=== PATIENT | female | born 1985 | race Caucasian/White ===

== ENCOUNTER 2020-06-23 08:31 | Day surgery (SDC) | payer OTHER ==
[~2020-06-23] VITALS: Ht 160 cm; Wt 90.7 kg
--- NOTE | ~2020-06-23 | OR ---
[facility] [address] [place], [place] [address] Draft DATE OF OPERATION: 06/23/2020 SURGEON: Palmer Sawant DO VAULT SERVICE MECHANIC: Dr. Trammell. PREOPERATIVE DIAGNOSIS: Right ovarian torsion. POSTOPERATIVE DIAGNOSES: 1. Right ovarian and tubal torsion. 2. History of endometriosis, right ovarian cyst. OPERATIVE PROCEDURE: Laparoscopic right ovarian D torsion right salpingectomy. FINDINGS: Surgically absent uterus, left tube and ovary. Right tube and ovary torsed around the infundibulopelvic ligament for 360 degrees. Right distal tube edematous swollen measuring 1 cm diameter by 7 cm in length, right ovary with 2 cm simple versus chocolate cyst, otherwise normal-appearing ovary riggins/white in color without evidence of necrosis. INDICATION: The patient is a 34-year-old female, who presented to the [place] [facility] Emergency room after acute onset right lower quadrant abdominal pain of 4:00 a.m. She reported vomiting 3 times at home prior to presentation, has had no appetite today. Tried drinking water at 6:00 a.m., but otherwise has had nothing to eat since 6:00 p.m. last night. SURGICAL HISTORY: Significant for bilateral tubal ligation, prior laparoscopic hysterectomy and left oophorectomy performed for endometriosis. CT scan was initially performed in the ER, which was significant for normal-appearing appendix, enlarged right ovary concerning for possible torsion or mass. Followup ultrasound was performed confirming enlarged right ovary with absent blood flow. Risks, benefits, and alternatives to laparoscopic right ovarian detorsion with possible right ovarian cystectomy, possible right ovariopexy, possible right oophorectomy were discussed at length with the patient and her . Risks of surgical menopause, ovarian , future torsion, bleeding, infection, damage to surrounding structures including but not limited to bowel, bladder, ureter, major PATIENT NAME: FIDE NAIK OPERATIVE REPORT DATE OF : 81 REPORT #: [id number] PHYSICIAN: PALMER SAWANT DO PCP: JULIAN GOODMAN REPORT IS CONFIDENTIAL AND NOT TO BE RELEASED WITHOUT AUTHORIZATION [facility] [address] [place], [place] [address] Draft vessels were discussed at length. The patient elected to proceed, consents were signed, and she was taken to the operating room. DESCRIPTION OF PROCEDURE: The patient was taken to the operating room where she was placed under general anesthesia. She was positioned in dorsal lithotomy and prepped and draped in the normal sterile fashion. 3 cm horizontal skin incision was made through her prior infraumbilical horizontal scar. Using Nita technique, the subcutaneous layer was dissected bluntly and sharply with Metzenbaum scissors. The fascia was grasped, elevated, and entered with Metzenbaum scissors. No adhesions were palpated. Inferior and superior margins of the incision were each marked with a stay suture of 0 Vicryl. Nita trocar was placed in the abdomen and correct placement was confirmed with the laparoscope. Pneumoperitoneum was achieved with CO2 gas and the patient was placed in Trendelenburg to facilitate visualization of the pelvis. A 5 mm incision was made lateral and inferior to the umbilical incision through her prior scar. A 5 mm trocar was placed under direct visualization. Blunt laparoscopic grasper was then used to help retract the bowel and pelvis was surveyed with findings as noted above. Additional 5 mm trocar was placed in a similar fashion on the right side lateral and inferior to the umbilical incision through her prior scar under direct visualization. The tube and ovary were gently and easily de-torsed providing excellent visualization of the edematous distal right fallopian tube. Tube was then grasped and elevated using ligature device. Right salpingectomy was performed taking care to remove the entire fimbria. The tube was removed from the abdomen through the trocar under direct visualization and noted to be intact upon its removal. Once removed, the ovary was fully inspected, noted to have good vascular flow and perfusion to be of normal color and normal size. Risks of ovariopexy to the abdominal wall were considered and decision was made to leave this normal-appearing ovary with small cyst along the pelvic sidewall without fixation. Instrumentation was removed. Pneumoperitoneum was evacuated and the infraumbilical incision was closed in a running fashion at the fascia with 0 Vicryl. Skin closures were performed with 4-0 Monocryl. Robles catheter was removed. Lap, sponge, and instrument counts were correct. The patient was taken to recovery in stable and satisfactory condition. DO TAMMY ThomasZ/MODL /[id number] PATIENT NAME: FIDE NAIK OPERATIVE REPORT DATE OF : [birth year] REPORT #: [id number] PHYSICIAN: PALMER SAWANT DO PCP: JULIAN GOODMAN REPORT IS CONFIDENTIAL AND NOT TO BE RELEASED WITHOUT AUTHORIZATION [address] [address] Draft Copies: ~ PATIENT NAME: FIDE NAIK OPERATIVE REPORT DATE OF : [birth year] REPORT #: [id number] PHYSICIAN: PALMER SAWANT DO PCP: JULIAN GOODMAN REPORT IS CONFIDENTIAL AND NOT TO BE RELEASED WITHOUT AUTHORIZATION
[~2020-06-23 08:31] MED LIST: AMITRIPTYLINE H25 MG PO; BACTRIM DS TAB1 EACH PO; CIPRO250 MG PO; FENOFIBRATE160 MG PO; FISH OIL500 MG PO; NORCO 5-325 TA1 EACH PO; ONDANSETRON ODT8 MG PO; PERCOCET 7.5-31 EACH PO; RED YEAST RICE600 M1; SEPTRA DS TABL1 EACH PO; SINGULAIR10 MG; SYMBICORT 80-10.2 GM; TESSALON PERLE100 MG PO; TOPAMAX100 MG PO
[2020-06-23] MEDS ORDERED: DULOXETINE HCL30 MG PO (08:45)
[2020-06-23] MEDS ORDERED: VENTOLIN HFA18 GM INH (08:46)
--- NOTE | 2020-06-23 13:40 | NUR ---
06/23/20 1340 Sheets,Kavitha 1320 PT ARRIVED TO PACU WITH ORAL AIRWAY IN PLACE, VSS. PT STARTING MOVING AND REACHING FOR HER FACE.
--- NOTE | 2020-06-23 14:13 | NUR ---
PT IS BACK TO DS FROM PACU. IS AT THE BEDSIDE. SHE IS TOLERATING WATER AND JELLO. CALL LIGHT WITHIN REACH. PAIN IS TOLERABLE. NO ADDITIONAL NEEDS AT THIS TIME.
[2020-06-23] MEDS ORDERED: HYDROCODON-ACE1 EA10 PO (15:02)
[2020-06-23] MEDS ORDERED: IBUPROFEN800 MG PO (15:02)
--- NOTE | 2020-06-23 15:04 | NUR ---
PT IS UP OOB TO THE BATHROOM. SHE IS ABLE TO VOID 250MLS. SHE AMBULATES HERSELF BACK TO BED.
--- NOTE | 2020-06-23 15:45 | NUR ---
PT IS GIVEN VERBAL DC INSTRUCTIONS WITH PRESENT. THEY BOTH VERBALIZE UNDERSTANDING. NO QUESTIONS AT THIS TIME. PT IS TAKEN TO VEHICLE VIA WC, SHE IS ABLE TO TRANSFER HERSELF FROM WC TO VEHICLE.
--- NOTE | 2020-06-25 11:54 | PATH ---
[facility] [address] [place], [place] [address] Signed SPECIMEN(S): A RIGHT FALLOPIAN TUBE SPECIMEN SOURCE: A. RIGHT FALLOPIAN TUBE CLINICAL HISTORY: Right ovarian torsion. FINAL PATHOLOGIC DIAGNOSIS: Fallopian tube, right, salpingectomy: - Fallopian tube with significant vascular congestion, edema, and hemorrhage. - See comment. COMMENT: The findings are compatible with torsion. Correlation with clinical and operative findings is recommended. NAL:cml:C2NR MICROSCOPIC EXAMINATION: Histologic sections of all submitted blocks are examined by light microscopy. These findings, together with the gross examination, support the pathologic diagnosis. GROSS DESCRIPTION: The specimen, labeled "SB, right fallopian tube," is received in formalin and consists of a fallopian tube that measures 5.5 x 1.1 cm. It shows fimbria. The serosal surface is violaceous, smooth and focally congested. The lumen contains coagulated blood. Rail Assembler sections are submitted in cassette (A1). JS (under the direct supervision of a pathologist) The Gross Description was prepared using a voice recognition system. The report was reviewed for accuracy; however, sound-alike word errors, addition and/or deletions may occur. If there is any question about this report, please contact Client Services. PERFORMING LABORATORY: The technical component was performed by [facility], [address] [place] [id number] ([employer] Structure Assembler: Tressa Mathews MD; CLIA# [id number]). [facility], [address] [address] (CLIA# [id number]). PATIENT NAME: FIDE NAIK PATHOLOGY DATE OF : [birth year] REPORT #: [id number] PHYSICIAN: [facility] PCP: JULIAN GOODMAN REPORT IS CONFIDENTIAL AND NOT TO BE RELEASED WITHOUT AUTHORIZATION [facility] [address] [place] [id number] Signed Diagnostician: Azra Gonzalez MD Pathologist Electronically Signed 06/25/2020 Copies: ~ PATIENT NAME: FIDE NAIK PATHOLOGY DATE OF : 81 REPORT #: [id number] PHYSICIAN: DEANN PATHOLOGY PCP: JULIAN GOODMAN REPORT IS CONFIDENTIAL AND NOT TO BE RELEASED WITHOUT AUTHORIZATION
== END 2020-06-23 15:25 | disposition home or self-care (01) ==
LOC: ED 08:31 → DS 11:16
PROVIDERS: ATTEND Obstetrics & Gynecology
PROC: 0UB54ZZ Excision of Right Fallopian Tube, Percutaneous Endoscopic Approach (ICD-10-PCS; principal; 2020-06-23 12:00)
DX: N83.53 Torsion of ovary, ovarian pedicle and fallopian tube (principal); Z87.42 Personal history of other diseases of the female genital tract; Z87.891 Personal history of nicotine dependence; Z98.890 Other specified postprocedural states; Z88.1 Allergy status to other antibiotic agents; Z88.0 Allergy status to penicillin; Z20.822 Contact with and (suspected) exposure to COVID-19
CPT/HCPCS: 00840; 74177; 76830; 76856; 80053; 81001; 83690; 85025; 99285-25; C9803; J1100; J1885; J2001; J2250; J2270; J2405; J2704; J3010; J7030; J7121; Q9967; U0003

== ENCOUNTER 2020-06-27 12:57 | Emergency (ER) | payer OTHER ==
[~2020-06-27] VITALS: Ht 162.6 cm; Wt 90.7 kg
[~2020-06-27 12:57] MED LIST changes: +DULOXETINE HCL30 MG PO; +HYDROCODON-ACE1 EA10 PO; +IBUPROFEN800 MG PO; +VENTOLIN HFA18 GM INH
--- OUTSIDE RECORDS SUMMARY | 2020-06-27 15:40 | XMS ---
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 David has no Care Guidelines for this patient. [facility] VISIT COUNT (12 MO.) [address] [facility] TOTAL 2 NOTE: Visits indicate total known visits. ED/C VISIT TRACKING (12 MO.) 06/27/2020 12:[address] [facility] [place] TYPE: Emergency COMPLAINT: - POST OP PROBLEM 06/23/2020 08:32 [facility] [place] TYPE: Emergency COMPLAINT: - ABD PAIN INPATIENT VISIT TRACKING (12 MO.) No inpatient visits to display in this time frame [email or web address]
[2020-06-27] MEDS ORDERED: PERCOCET 5-3251 EACH PO (17:15)
[2020-06-27] MEDS ORDERED: ZOFRAN4 MG PO (17:15)
[2020-06-29] MEDS ORDERED: OXYCODONE HCL5 MG PO (16:21)
== END 2020-06-27 17:29 | disposition home or self-care (01) ==
LOC: ED 12:57
DX: N83.201 Unspecified ovarian cyst, right side (principal); Z88.0 Allergy status to penicillin; Z88.8 Allergy status to other drugs, medicaments and biological substances; Z88.5 Allergy status to narcotic agent; Z79.899 Other long term (current) drug therapy
CPT/HCPCS: 76830; 76856; 80053; 81001; 83690; 85025; 96374; 96375; 99284-25; J1885; J2270; J2405; J7030

== ENCOUNTER 2025-01-20 17:33 | Emergency (ER) | payer OTHER ==
[~2025-01-20] VITALS: Ht 162.6 cm; Wt 91.0 kg
[~2025-01-20 17:33] MED LIST changes: +OXYCODONE HCL5 MG PO; +PERCOCET 5-3251 EACH PO; +ZOFRAN4 MG PO
[2025-01-20] MEDS ORDERED: BUPROPION XL150 MG PO (17:55)
[2025-01-20] MEDS ORDERED: ESTRADIOL1 EAC7 (17:55)
[2025-01-20 18:18] VITALS: BP 145/87
== END 2025-01-20 18:20 | disposition home or self-care (01) ==
LOC: ED 17:33
DX: S90.31XA Contusion of right foot, initial encounter (principal); Z88.1 Allergy status to other antibiotic agents; Z88.8 Allergy status to other drugs, medicaments and biological substances; Z88.5 Allergy status to narcotic agent; Z79.899 Other long term (current) drug therapy; W22.8XXA Striking against or struck by other objects, initial encounter
CPT/HCPCS: 73630; 99283